=== PATIENT | female | born 1940 | race Caucasian/White ===

== ENCOUNTER 2019-01-20 06:49 | Emergency (ER) | payer MEDICARE, BC ==
[~2019-01-20] VITALS: Ht 144.8 cm; Wt 54.5 kg
[~2019-01-20 06:49] MED LIST: ALBU18HF2 IH; LOP25T PO
[2019-01-20 07:38] LABS: CLARITY,URINE CLOUDY (Clear); COLOR,URINE YELLOW (Yellow); GLUCOSE, URINE NEGATIVE (Neg); KETONES,URINE NEGATIVE (Neg); LEUKOCYTE ESTERASE ,URINE TRACE (Neg); NITRITES, URINE NEGATIVE (Neg); OCCULT BLOOD,URINE SMALL (Neg); PROTEIN,URINE NEGATIVE (Neg); UROBILINOGEN,URINE 0.2 E.U/dL (0.2-1.0)
[2019-01-20 07:38] LABS: BASOPHILS # (AUTO) 0.1 X10'3 (0-0.2); BASOPHILS % (AUTO) 0.8 % (0-1); EOSINOPHILS # (AUTO) 0.2 X10'3 (0-0.9); EOSINOPHILS % (AUTO) 2.3 % (0-6); HEMATOCRIT 44.9 % (35.0-45.0); HEMOGLOBIN 15.1 g/dl (12.0-16.0); LYMPHOCYTES # (AUTO) 1.9 X10'3 (1.1-4.8); LYMPHOCYTES % (AUTO) 18.6 % (21-51); MEAN CORPUSCULAR HEMOGLOBIN 30.6 PG (27.0-31.0); MEAN CORPUSCULAR HGB CONC 33.7 g/dL (33.0-36.5); MEAN CORPUSCULAR VOLUME 90.7 FL (78-98); MEAN PLATELET VOLUME 10.4 FL (7.4-10.4); MONOCYTES # (AUTO) 0.9 X10'3 (0-0.9); NEUTROPHILS % (AUTO) 69.3 % (42-75); PLATELET COUNT 222 X10'3 (140-440); RED BLOOD COUNT 4.95 X10'6 (4.20-5.60); RED CELL DISTRIBUTION WIDTH 14.2 % (11.5-14.5); WHITE BLOOD COUNT 10.1 X10'3 (4.5-11.0)
[2019-01-20] MEDS ORDERED: ondansetron/PF 4mg/2ml inj IV ONE (07:40)
[2019-01-20 07:42] LABS: UA COLLECTION TYPE CLN CATCH MIDSTREAM
[2019-01-20 07:45] LABS: BACTERIA,URINE 2+ /HPF (Neg); MUCUS STRANDS NONE SEEN /LPF (Neg); SQUAMOUS EPITHELIAL CELL,UR MANY /LPF (FEW)
[2019-01-20 07:48] LABS: INR 0.9 INR; PROTHROMBIN TIME 9.2 SECONDS (9.0-12.0)
[2019-01-20 07:50] LABS: ALANINE AMINOTRANSFERASE 35 U/L (12-78); ALBUMIN 3.5 G/DL (3.4-5.0); ALBUMIN/GLOBULIN RATIO 0.9 (1.1-1.5); ALKALINE PHOSPHATASE 114 IU/L (46-116); ANION GAP 10 (8-16); ASPARTATE AMINO TRANSFERASE 26 U/L (10-37); BLOOD UREA NITROGEN 9 MG/DL (7-18); BUN/CREATININE RATIO 13.2 (6.6-38.0); CALCIUM 9.2 MG/DL (8.5-10.1); CHLORIDE 105 MMOL/L (99-107); CREATININE 0.68 MG/DL (0.40-0.90); GLUCOSE 103 MG/DL (70-104); LIPASE 102 U/L (73-393); SODIUM 141 MMOL/L (135-145); TOTAL CARBON DIOXIDE 26.2 MMOL/L (24-32); TOTAL PROTEIN 7.6 G/DL (6.4-8.2); eGFR 84 ML/MIN
[2019-01-20 07:56] LABS: POTASSIUM 4.3 MMOL/L (3.5-5.1)
[2019-01-20] MEDS ORDERED: fentaNYL/PF 50MCG/1 ML 2ML syringe IV ONE (08:00)
[2019-01-20] MEDS ORDERED: ketorolac trometh. 30mg/ml inj. IV ONE (08:05)
[2019-01-20] MEDS ORDERED: iohexol 300mg/ml 100ml inj. ONE (08:06)
[2019-01-20 09:14] VITALS: BP 130/84
[2019-01-20] MEDS ORDERED: METR-159 PO (09:28)
[2019-01-20] MEDS ORDERED: CIPR-230 PO (09:28)
[2019-01-20] MEDS ORDERED: metroNIDAZOLE 500mg tablet PO ONE (09:30)
[2019-01-20] MEDS ORDERED: levoFLOXACIN 750MG TABLET PO ONE (09:30)
--- NOTE | 2019-01-20 10:10 | NUR ---
IV REMOVED WITH TIP INTACT. DC INSTRUCTIONS WITH PRESCRIPTION GIVEN. PATIENT VERBALIZED UNDERSTANDING. DEPARTED FROM ER IN GOOD CONDITION.
== END 2019-01-20 10:11 | disposition home or self-care (01) ==
LOC: ER 06:50
DX: K57.92 Diverticulitis of intestine, part unspecified, without perforation or abscess without bleeding (principal); I10 Essential (primary) hypertension; J45.909 Unspecified asthma, uncomplicated; G89.29 Other chronic pain; M54.9 Dorsalgia, unspecified; Z90.710 Acquired absence of both cervix and uterus; Z88.0 Allergy status to penicillin; Z88.2 Allergy status to sulfonamides; Z91.048 Other nonmedicinal substance allergy status
CPT/HCPCS: 36415; 74176; 80053; 81001; 83690; 85025; 85610; 96374; 99284; J1885; J2405; Q9967; J3490

== ENCOUNTER 2021-06-05 21:37 | Emergency (ER) | payer MEDICARE, BC ==
[~2021-06-05] VITALS: Ht 147.3 cm; Wt 57.3 kg
[2021-06-05 21:54] VITALS: BP 143/86
--- NOTE | 2021-06-06 01:06 | NUR ---
DR. ORTIZ AT BEDSIDE.
== END 2021-06-06 01:24 | disposition home or self-care (01) ==
LOC: ER 21:38
DX: M79.671 Pain in right foot (principal); M25.571 Pain in right ankle and joints of right foot; I10 Essential (primary) hypertension; J45.909 Unspecified asthma, uncomplicated; G89.29 Other chronic pain; N19 Unspecified kidney failure; Z85.9 Personal history of malignant neoplasm, unspecified; Z90.49 Acquired absence of other specified parts of digestive tract; Z91.048 Other nonmedicinal substance allergy status; Z88.0 Allergy status to penicillin; Z88.2 Allergy status to sulfonamides; Z79.899 Other long term (current) drug therapy
CPT/HCPCS: 73630; 99283

== ENCOUNTER 2022-01-25 08:03 | Emergency (ER) | payer MEDICARE, BC ==
[~2022-01-25] VITALS: Ht 147.3 cm; Wt 55.6 kg
[2022-01-25 08:17] VITALS: BP 127/88
[2022-01-25] MEDS ORDERED: HYDROcodone/acetaminophen 5mg/325mg tablet PO ONE (11:00)
[2022-01-25] MEDS ORDERED: ibuprofen 200mg tablet PO ONE (11:40)
== END 2022-01-25 11:54 | disposition home or self-care (01) ==
LOC: ER 08:04
DX: S70.02XA Contusion of left hip, initial encounter (principal); M25.552 Pain in left hip; I10 Essential (primary) hypertension; J45.909 Unspecified asthma, uncomplicated; G89.29 Other chronic pain; Z90.49 Acquired absence of other specified parts of digestive tract; Z85.9 Personal history of malignant neoplasm, unspecified; Z88.0 Allergy status to penicillin; Z88.2 Allergy status to sulfonamides; Z88.8 Allergy status to other drugs, medicaments and biological substances; Z79.899 Other long term (current) drug therapy; W19.XXXA Unspecified fall, initial encounter; Y93.89 Activity, other specified; Y92.89 Other specified places as the place of occurrence of the external cause; Y99.8 Other external cause status
CPT/HCPCS: 73502; 99284

== ENCOUNTER 2022-07-17 11:30 | Emergency (ER) | payer MEDICARE, BC ==
[~2022-07-17] VITALS: Ht 144.8 cm; Wt 53.2 kg
[2022-07-17 11:43] VITALS: BP 140/85
== END 2022-07-17 14:41 | disposition left against medical advice (07) ==
LOC: ER 11:30
DX: L04.9 Acute lymphadenitis, unspecified (principal); Z53.21 Procedure and treatment not carried out due to patient leaving prior to being seen by health care provider

== ENCOUNTER 2022-11-21 05:29 | Day surgery (SDC) | payer MEDICARE, BC ==
[2022-11-14 14:09] LABS: BASOPHILS % (AUTO) 0.4 % (0-1); EOSINOPHILS # (AUTO) 0.1 X10'3 (0-0.9); EOSINOPHILS % (AUTO) 1.2 % (0-6); LYMPHOCYTES # (AUTO) 1.3 X10'3 (1.1-4.8); LYMPHOCYTES % (AUTO) 19.5 % (21-51); MEAN CORPUSCULAR HEMOGLOBIN 29.6 PG (27.0-31.0); MEAN CORPUSCULAR HGB CONC 32.4 g/dL (33.0-36.5); MEAN CORPUSCULAR VOLUME 91.2 FL (78-98); MEAN PLATELET VOLUME 10.2 FL (7.4-10.4); MONOCYTES # (AUTO) 0.5 X10'3 (0-0.9); NEUTROPHILS # (AUTO) 4.6 X10'3 (1.8-7.7); NEUTROPHILS % (AUTO) 70.9 % (42-75); PRE OP HEMATOCRIT 43.6 % (35.0-45.0); PRE OP HEMOGLOBIN 14.1 g/dL (12.0-16.0); PRE OP PLATELET COUNT 240 X10'3 (140-440); RED BLOOD COUNT 4.78 X10'6 (4.20-5.60); RED CELL DISTRIBUTION WIDTH 14.4 % (11.5-14.5)
[2022-11-14 14:22] LABS: ALBUMIN 3.5 G/DL (3.4-5.0); ALKALINE PHOSPHATASE 113 IU/L (46-116); BLOOD UREA NITROGEN 9 MG/DL (7-18); BUN/CREATININE RATIO 16.1 (6.6-38.0); CALCIUM 8.9 MG/DL (8.5-10.1); CHLORIDE 107 MMOL/L (99-107); CREATININE 0.56 MG/DL (0.40-0.90); PRE OP ALT 19 U/L (30-65); PRE OP ANION GAP 4 (8-16); PRE OP AST 22 U/L (10-37); PRE OP BILIRUB, TOTAL 0.6 MG/DL (0.0-1.0); PRE OP GLUCOSE 106 MG/DL (70-104); PRE OP POTASSIUM 3.9 MMOL/L (3.4-5.1); PRE OP SODIUM 141 MMOL/L (135-145); TOTAL CARBON DIOXIDE 30.4 MMOL/L (24-32); TOTAL PROTEIN 7.1 G/DL (6.4-8.2); eGFR > 90 ML/MIN
[2022-11-21] VITALS (14 sets, daily range): BP systolic 139–166; BP diastolic 84–103
[~2022-11-21] VITALS: Ht 149.9 cm; Wt 51.0 kg
[~2022-11-21 05:29] MED LIST changes: +ASPI-1397 PO; +ATOR10TA70 PO; +HYDR-3964 PO; +OMEP20CA16 PO; +TRAM50TA2 PO; +ringers solution, lacted 1,000 ML IV SCH
[2022-11-21] MEDS ORDERED: celeCOXIB 100mg capsule PO ONE (05:30)
[2022-11-21] MEDS ORDERED: famotidine 20mg tablet PO ONE (05:30)
[2022-11-21] MEDS ORDERED: tranexamic acid inj. 1,000 MG in normal saline IV soln 100ML IV ONE (05:30)
[2022-11-21] MEDS ORDERED: metoclopramide 5 mg/ml inj IV ONE (05:30)
[2022-11-21] MEDS ORDERED: DOCUMENT DATE & TIME OF BETA-BLOCKER PO ONE (05:30)
[2022-11-21] MEDS ORDERED: vancomycin/NS 1 GM in NS 250 ML IV ONE (05:30)
[2022-11-21] MEDS ORDERED: triamcinolone acetonide 40mg/ml inj ONE (06:56)
[2022-11-21] MEDS ORDERED: BUPIVAcaine 0.25% w/Epi /PF 30ml vial ONE (06:56)
--- NOTE | 2022-11-21 06:59 | NUR ---
CALL MADE TO PHARMACY IN REGARDS TO CELEBREX ORDER AND PT'S SULFA ALLERGY. PT HAS BEEN PRESCRIBED THIS MEDICATION IN AUGUST WHEN SHE HAD HER LEFT KNEE REPLACEMENT. PT STATES SHE TOOK THIS MEDICATION WITH NO PROBLEMS OR REACTIONS. SPOKE TO PHARMACIST MIRANDA AND RELAYED INFORMATION AND SHE STATED IT WAS OK TO GIVE MEDICATION. WILL CONTINUE TO ASSESS
[2022-11-21] MEDS ORDERED: sevoflurane 250ml liquid IH ONE (07:15)
[2022-11-21] MEDS ORDERED: cloNIDine hcl/PF 100mcg/ml inj ONE (07:15)
[2022-11-21] MEDS ORDERED: propofol inj 20 ML IV ONE (07:43)
[2022-11-21] MEDS ORDERED: dexamethasone sod phosphate 4mg/ml inj. ONE (07:43)
[2022-11-21] MEDS ORDERED: ROPIVAcaine 0.5% (5mg/ml) 30ml vial ONE (07:43)
[2022-11-21] MEDS ORDERED: LIDOcaine 2% (20mg/ml) 5ml vial ONE (07:43)
--- NOTE | 2022-11-21 07:55 | NUR ---
Received from OR via [g PCS.BED], accompanied by Anesthesiologist [] and report given by Anesthesiolgist. Addendum: 11/21/22 at 0813 by Patricia Marcum RN, RN Amended: Links added.
[2022-11-21] MEDS ORDERED: ondansetron/PF 4mg/2ml inj IV PRN (08:00)
[2022-11-21] MEDS ORDERED: morphine 2 MG/ML inj. syringe IV PRN (08:00)
[2022-11-21] MEDS ORDERED: proCHLORperazine 10 MG/2 ml inj IV PRN (08:00)
[2022-11-21] MEDS ORDERED: ringers solution, lacted 1,000 ML IV SCH (08:00)
[2022-11-21] MEDS ORDERED: labetalol 20mg/4ml (5mg/ml) syringe IV PRN (08:00)
[2022-11-21] MEDS ORDERED: hydrALAZINE 20mg/ml inj. IV PRN (08:00)
[2022-11-21] MEDS ORDERED: meperidine/PF 25mg/ml syringe IV PRN ×3 (08:00)
[2022-11-21] MEDS ORDERED: acetaminophen 1,000mg/100ml IV 100 ML IV PRN (08:05)
[2022-11-21] MEDS ORDERED: ketorolac tromethamine 15mg/ml inj. IV ONE (08:05)
--- NOTE | 2022-11-21 09:45 | NUR ---
I HAVE REVIEWED D/C INSTRUCTIONS WITH PATIENT and they have verbalized understanding patient d/c home with all belongings and family gave transport home. Addendum: 11/21/22 at 0953 by Patricia Marcum RN, RN Amended: Links added.
== END 2022-11-21 09:45 | disposition home or self-care (01) ==
LOC: PAS 05:29
PROVIDERS: ATTEND Orthopaedic Surgery
DX: T84.82XA Fibrosis due to internal orthopedic prosthetic devices, implants and grafts, initial encounter (principal); M17.0 Bilateral primary osteoarthritis of knee; M85.80 Other specified disorders of bone density and structure, unspecified site; I10 Essential (primary) hypertension; G89.18 Other acute postprocedural pain; E78.5 Hyperlipidemia, unspecified; K21.9 Gastro-esophageal reflux disease without esophagitis; G43.909 Migraine, unspecified, not intractable, without status migrainosus; J45.20 Mild intermittent asthma, uncomplicated; Z90.710 Acquired absence of both cervix and uterus; Z96.653 Presence of artificial knee joint, bilateral; Z85.828 Personal history of other malignant neoplasm of skin; Z98.890 Other specified postprocedural states; Z88.0 Allergy status to penicillin; Z88.2 Allergy status to sulfonamides; Z91.048 Other nonmedicinal substance allergy status; Z79.82 Long term (current) use of aspirin; Z79.899 Other long term (current) drug therapy; Y83.8 Other surgical procedures as the cause of abnormal reaction of the patient, or of later complication, without mention of misadventure at the time of the procedure
CPT/HCPCS: 27570; 36415; 64447; 80053; 82948; 85025; 93005; J0131; J0735; J1100; J1885; J2704; J2765; J2795; J3370; J3490; J7120; Z7506; Z7512; A4618; J3301; S0020

== ENCOUNTER 2023-01-07 10:38 | Emergency (ER) | payer MEDICARE, BC ==
[~2023-01-07] VITALS: Ht 147.3 cm; Wt 50.9 kg
[~2023-01-07 10:38] MED LIST changes: -ringers solution, lacted 1,000 ML IV SCH
[2023-01-07] MEDS ORDERED: HYDROcodone/acetaminophen 10/325mg tab PO ONE (11:15)
--- NOTE | 2023-01-07 13:12 | NUR ---
Gait test completed w/ pt. Pt amb w/ walker and 2 staff standing by for approx 40 ft. States she does have pain, but was able to complete the ambulation. Pt placed back in bed and positioned for comfort on right side.
[2023-01-07] MEDS ORDERED: OXYC-149 PO (13:47)
[2023-01-07 15:44] VITALS: BP 171/115
== END 2023-01-07 14:00 | disposition home or self-care (01) ==
LOC: ER 10:38
DX: M54.16 Radiculopathy, lumbar region (principal); I10 Essential (primary) hypertension; Z88.0 Allergy status to penicillin; Z88.2 Allergy status to sulfonamides; Z91.09 Other allergy status, other than to drugs and biological substances; Z90.49 Acquired absence of other specified parts of digestive tract
CPT/HCPCS: 72100; 72170; 73552; 99284

== ENCOUNTER 2024-12-08 11:24 | Inpatient (IN) | payer MEDICARE, BC ==
[~2024-12-08] VITALS: Ht 167.6 cm; Wt 57.7 kg
[~2024-12-08 11:24] MED LIST changes: +LORA10TA7 PO; +PRED5TAB PO
[2024-12-08] MEDS ORDERED: iohexol 350MG/ML 100ml bottle IV ONE (12:09)
[2024-12-08 12:35] LABS: EOSINOPHILS # (AUTO) 0.1 X10'3 (0-0.9); LYMPHOCYTES # (AUTO) 0.7 X10'3 (1.1-4.8); MONOCYTES # (AUTO) 0.5 X10'3 (0-0.9)
[2024-12-08 12:37] LABS: BASOPHILS % (AUTO) 0.3 % (0-1); EOSINOPHILS % (AUTO) 1.5 % (0-6); HEMATOCRIT 34.8 % (35.0-45.0); LYMPHOCYTES % (AUTO) 16.2 % (21-51); MEAN CORPUSCULAR HEMOGLOBIN 25.8 PG (27.0-31.0); MEAN CORPUSCULAR HGB CONC 31.6 g/dL (33.0-36.5); MEAN CORPUSCULAR VOLUME 81.6 FL (78-98); MEAN PLATELET VOLUME 9.6 FL (7.4-10.4); MONOCYTES % (AUTO) 11.6 % (2-12); NEUTROPHILS # (AUTO) 3.1 X10'3 (1.8-7.7); NEUTROPHILS % (AUTO) 70.4 % (42-75); PLATELET COUNT 168 X10'3 (140-440); RED BLOOD COUNT 4.26 X10'6 (4.20-5.60); RED CELL DISTRIBUTION WIDTH 17.4 % (11.5-14.5); WHITE BLOOD COUNT 4.4 X10'3 (4.5-11.0)
[2024-12-08 12:43] LABS: APTT 24 SECONDS (22-32); PROTHROMBIN TIME 10.3 SECONDS (9.0-12.0)
[2024-12-08 12:46] LABS: ALANINE AMINOTRANSFERASE 16 U/L (12-78); ALBUMIN/GLOBULIN RATIO 0.9 (1.1-1.5); ALKALINE PHOSPHATASE 96 IU/L (46-116); ANION GAP 9 (8-16); ASPARTATE AMINO TRANSFERASE 18 U/L (10-37); BILIRUBIN,TOTAL 0.6 MG/DL (0.1-1.0); BLOOD UREA NITROGEN 11 MG/DL (7-18); CALCIUM 8.1 MG/DL (8.5-10.1); CHLORIDE 109 MMOL/L (99-107); GLUCOSE 98 MG/DL (70-104); POTASSIUM 3.6 MMOL/L (3.5-5.1); SODIUM 143 MMOL/L (135-145); TOTAL CARBON DIOXIDE 25.3 MMOL/L (24-32); TOTAL PROTEIN 6.2 G/DL (6.4-8.2); eCRCL 79 ML/MIN; eGFR > 90 ML/MIN
[2024-12-08 12:49] LABS: MAGNESIUM 1.9 MG/DL (1.5-2.4)
[2024-12-08 15:08] LABS: BILIRUBIN,URINE NEGATIVE (Neg); CLARITY,URINE CLEAR (Clear); COLOR,URINE YELLOW (Yellow); GLUCOSE, URINE NEGATIVE (Neg); KETONES,URINE NEGATIVE (Neg); LEUKOCYTE ESTERASE ,URINE NEGATIVE (Neg); NITRITES, URINE NEGATIVE (Neg); OCCULT BLOOD,URINE TRACE-INTACT (Neg); PROTEIN,URINE NEGATIVE (Neg); UROBILINOGEN,URINE 0.2 E.U/dL (0.2-1.0)
[2024-12-08 15:13] LABS: UA COLLECTION TYPE URINAL
[2024-12-08 15:21] LABS: WBC,URINE 0-4 /HPF (0-4)
[2024-12-08 15:22] LABS: BACTERIA,URINE NONE SEEN /HPF (Neg); SQUAMOUS EPITHELIAL CELL,UR FEW /LPF (FEW)
[2024-12-08] MEDS ORDERED: morphine 2 MG/ML inj. syringe IV PRN (17:30)
[2024-12-08] MEDS ORDERED: magnesium sulf-water 4G/100mL 100 ML IV PRN (17:30)
[2024-12-08] MEDS ORDERED: acetaminophen 325mg tablet PO PRN (17:30)
[2024-12-08] MEDS ORDERED: potassium Cl 20 mEq SR tablet PO PRN ×2 (17:30)
[2024-12-08] MEDS ORDERED: ondansetron/PF 4mg/2ml inj IV PRN (17:30)
[2024-12-08] MEDS ORDERED: magnesium hydroxide 30ml (MOM) UD suspension PO PRN (17:30)
[2024-12-08] MEDS ORDERED: potassium Cl 40MEQ/1/2NS 520ml 520 ML IV PRN (17:30)
[2024-12-08] MEDS ORDERED: mag hydrox/Alum hydrox/simeth 30ml oral suspension PO PRN (17:30)
[2024-12-08] MEDS ORDERED: magnesium sulf-water 2g/50mL 50 ML IV PRN (17:30)
[2024-12-08] MEDS ORDERED: magnesium Cl slow-release 64mg tablet PO PRN (17:30)
[2024-12-08 18:25] LABS: HEMOGLOBIN A1C 5.9 % (4.5-6.2)
[2024-12-08] MEDS ORDERED: PERFLUTREN PROTEIN-A MICROSPHR (Optison) 0.22 MG/ML 3ML VIAL IV ONE (18:25)
[2024-12-08] MEDS ORDERED: PRAZ2CAP2 PO (18:29)
[2024-12-08] MEDS ORDERED: PARO20TA6 PO (18:30)
[2024-12-08] MEDS ORDERED: BACL5TAB PO (18:33)
[2024-12-08] MEDS: K and/or MAG REPLACEMENT MC SCH (19:19)
[2024-12-08 19:30] VITALS: BP 124/86; PULSE 94; RESP 16; TEMP 97.6; O2SAT 95
[2024-12-08] MEDS: clindamycin 600mg/D5W 50ml 50 ML IV SCH (19:32)
[2024-12-08] MEDS: docusate sod 100mg capsule PO SCH (19:32)
[2024-12-08 20:00] VITALS: BP_SYST 139; BP_SYST 145; BP_SYST 146; BP_DIAS 70; BP_DIAS 81; BP_DIAS 84; PULSE 85; PULSE 90
[2024-12-08 22:00] VITALS: BP 133/66; PULSE 86; RESP 19; TEMP 97.9; O2SAT 95
[2024-12-09 02:00] VITALS: BP 146/84; PULSE 90; RESP 20; TEMP 98.5; O2SAT 97
[2024-12-09 06:40] LABS: BASOPHILS % (AUTO) 0.4 % (0-1); EOSINOPHILS # (AUTO) 0.1 X10'3 (0-0.9); HEMATOCRIT 34.6 % (35.0-45.0); LYMPHOCYTES # (AUTO) 1.2 X10'3 (1.1-4.8); MEAN PLATELET VOLUME 9.6 FL (7.4-10.4); MONOCYTES # (AUTO) 0.4 X10'3 (0-0.9); PLATELET COUNT 182 X10'3 (140-440)
[2024-12-09 06:43] LABS: EOSINOPHILS % (AUTO) 3.5 % (0-6); HEMOGLOBIN 11.3 g/dl (12.0-16.0); MEAN CORPUSCULAR HEMOGLOBIN 26.4 PG (27.0-31.0); MEAN CORPUSCULAR HGB CONC 32.7 g/dL (33.0-36.5); MEAN CORPUSCULAR VOLUME 80.9 FL (78-98); MONOCYTES % (AUTO) 11.6 % (2-12); NEUTROPHILS % (AUTO) 52.5 % (42-75); RED BLOOD COUNT 4.27 X10'6 (4.20-5.60); RED CELL DISTRIBUTION WIDTH 16.8 % (11.5-14.5); WHITE BLOOD COUNT 3.8 X10'3 (4.5-11.0)
[2024-12-09 07:10] LABS: ALANINE AMINOTRANSFERASE 16 U/L (12-78); ALBUMIN 2.9 G/DL (3.4-5.0); ALBUMIN/GLOBULIN RATIO 0.9 (1.1-1.5); ALKALINE PHOSPHATASE 98 IU/L (46-116); ANION GAP 9 (8-16); ASPARTATE AMINO TRANSFERASE 15 U/L (10-37); BILIRUBIN,TOTAL 0.6 MG/DL (0.1-1.0); BLOOD UREA NITROGEN 11 MG/DL (7-18); BUN/CREATININE RATIO 19.3 (10.0-20.0); CALCIUM 8.4 MG/DL (8.5-10.1); CHLORIDE 108 MMOL/L (99-107); CHOL/HDL RATIO 2.5 (0.00-4.99); CHOLESTEROL 118 MG/DL (0-200); CREATININE 0.57 MG/DL (0.40-0.90); GLUCOSE 92 MG/DL (70-104); HDL CHOLESTEROL 47 MG/DL (35-60); LDL CHOLESTEROL 58 MG/DL (50-100); MAGNESIUM 1.9 MG/DL (1.5-2.4); POTASSIUM 3.8 MMOL/L (3.5-5.1); SODIUM 143 MMOL/L (135-145); TOTAL CARBON DIOXIDE 26.5 MMOL/L (24-32); TOTAL PROTEIN 6.3 G/DL (6.4-8.2); TRIGLYCERIDES 48 MG/DL (20-135); eCRCL 69 ML/MIN; eGFR > 90 ML/MIN
[2024-12-09 08:00] VITALS: BP_SYST 107; BP_SYST 113; BP_SYST 123; BP_SYST 98; BP_DIAS 57; BP_DIAS 64; BP_DIAS 69; BP_DIAS 99; PULSE 101; PULSE 80; PULSE 94; RESP 18; TEMP 96.8; TEMP 97.8; O2SAT 94
[2024-12-09] MEDS: HYDROcodone/acetaminophen 5mg/325mg tablet PO PRN (08:27)
[2024-12-09 08:53] LABS: ETHANOL < 10 MG/DL (<10)
[2024-12-09 14:19] LABS: BILIRUBIN,URINE NEGATIVE (Neg); CLARITY,URINE CLEAR (Clear); COLOR,URINE YELLOW (Yellow); GLUCOSE, URINE NEGATIVE (Neg); KETONES,URINE NEGATIVE (Neg); LEUKOCYTE ESTERASE ,URINE SMALL (Neg); NITRITES, URINE NEGATIVE (Neg); OCCULT BLOOD,URINE NEGATIVE (Neg); PROTEIN,URINE NEGATIVE (Neg); UROBILINOGEN,URINE 0.2 E.U/dL (0.2-1.0)
[2024-12-09 14:26] LABS: UA COLLECTION TYPE NON-SPECIFIED
[2024-12-09 14:28] LABS: BACTERIA,URINE FEW /HPF (Neg); RBC,URINE 0-2 /HPF (0-2); SQUAMOUS EPITHELIAL CELL,UR NONE SEEN /LPF (FEW); WBC,URINE 0-4 /HPF (0-4)
[2024-12-09 15:26] LABS: URINE AMPHETAMINE SCREEN NEGATIVE (Neg); URINE BARBITUATE SCREEN NEGATIVE (Neg); URINE BENZODIAZEPINES SCREEN NEGATIVE (Neg); URINE CANNABINOID SCREEN NEGATIVE (Neg); URINE COCAINE SCREEN NEGATIVE (Neg); URINE METHADONE SCREEN NEGATIVE (Neg); URINE OPIATE SCREEN POSITIVE (Neg); URINE PHENCYCLIDINE SCREEN NEGATIVE (Neg)
[2024-12-09 16:00] VITALS: BP 135/66; PULSE 84; RESP 24; TEMP 97.8; O2SAT 98
[2024-12-09 18:00] VITALS: BP 133/84; PULSE 79; RESP 21; TEMP 98.1; O2SAT 95
[2024-12-09 20:00] VITALS: BP_SYST 131; BP_SYST 135; BP_SYST 136; BP_DIAS 71; BP_DIAS 75; BP_DIAS 81; PULSE 78; PULSE 95; PULSE 98
[2024-12-09] MEDS: prazosin 1mg capsule PO SCH (20:00)
[2024-12-09] MEDS: metoprolol tartrate 25mg tablet PO SCH (20:00)
[2024-12-09 22:00] VITALS: BP 96/69; PULSE 75; RESP 20; TEMP 97.6; O2SAT 93
[2024-12-10] VITALS (8 sets, daily range): BP systolic 97–145; BP diastolic 52–82; PULSE 69–92; RESP 14–21; TEMP 97.1–97.8; O2SAT 94–97
[2024-12-10 05:27] LABS: BASOPHILS % (AUTO) 0.5 % (0-1); EOSINOPHILS # (AUTO) 0.1 X10'3 (0-0.9); EOSINOPHILS % (AUTO) 4.1 % (0-6); HEMATOCRIT 32.7 % (35.0-45.0); HEMOGLOBIN 10.6 g/dl (12.0-16.0); LYMPHOCYTES # (AUTO) 1.3 X10'3 (1.1-4.8); LYMPHOCYTES % (AUTO) 38.8 % (21-51); MEAN CORPUSCULAR HEMOGLOBIN 26.3 PG (27.0-31.0); MEAN CORPUSCULAR HGB CONC 32.3 g/dL (33.0-36.5); MEAN CORPUSCULAR VOLUME 81.4 FL (78-98); MEAN PLATELET VOLUME 8.9 FL (7.4-10.4); MONOCYTES # (AUTO) 0.4 X10'3 (0-0.9); MONOCYTES % (AUTO) 11.3 % (2-12); NEUTROPHILS # (AUTO) 1.5 X10'3 (1.8-7.7); NEUTROPHILS % (AUTO) 45.3 % (42-75); PLATELET COUNT 175 X10'3 (140-440); RED BLOOD COUNT 4.02 X10'6 (4.20-5.60); WHITE BLOOD COUNT 3.3 X10'3 (4.5-11.0)
[2024-12-10 05:50] LABS: ALANINE AMINOTRANSFERASE 14 U/L (12-78); ALBUMIN 2.7 G/DL (3.4-5.0); ALBUMIN/GLOBULIN RATIO 0.9 (1.1-1.5); ALKALINE PHOSPHATASE 86 IU/L (46-116); ANION GAP 5 (8-16); ASPARTATE AMINO TRANSFERASE 11 U/L (10-37); BILIRUBIN,TOTAL 0.5 MG/DL (0.1-1.0); BLOOD UREA NITROGEN 14 MG/DL (7-18); BUN/CREATININE RATIO 23.7 (10.0-20.0); CALCIUM 8.1 MG/DL (8.5-10.1); CHLORIDE 106 MMOL/L (99-107); CREATININE 0.59 MG/DL (0.40-0.90); GLUCOSE 96 MG/DL (70-104); MAGNESIUM 1.9 MG/DL (1.5-2.4); SODIUM 141 MMOL/L (135-145); TOTAL CARBON DIOXIDE 29.8 MMOL/L (24-32); TOTAL PROTEIN 5.8 G/DL (6.4-8.2); eCRCL 67 ML/MIN; eGFR > 90 ML/MIN
[2024-12-10] MEDS: PARoxetine 20mg tablet PO SCH (08:24)
[2024-12-10] MEDS: atorvastatin 10mg tablet PO SCH (08:24)
[2024-12-10] MEDS ORDERED: LACT1CAP75 PO (17:02)
[2024-12-11 02:00] VITALS: BP 134/53; PULSE 68; RESP 16; TEMP 97.8; O2SAT 94
[2024-12-11 05:58] LABS: BASOPHILS % (AUTO) 0.2 % (0-1); EOSINOPHILS # (AUTO) 0.1 X10'3 (0-0.9); EOSINOPHILS % (AUTO) 3.6 % (0-6); HEMATOCRIT 32.1 % (35.0-45.0); HEMOGLOBIN 10.4 g/dl (12.0-16.0); LYMPHOCYTES # (AUTO) 1.3 X10'3 (1.1-4.8); LYMPHOCYTES % (AUTO) 35.1 % (21-51); MEAN CORPUSCULAR HEMOGLOBIN 26.3 PG (27.0-31.0); MEAN CORPUSCULAR HGB CONC 32.4 g/dL (33.0-36.5); MEAN PLATELET VOLUME 9.5 FL (7.4-10.4); MONOCYTES # (AUTO) 0.3 X10'3 (0-0.9); MONOCYTES % (AUTO) 8.5 % (2-12); NEUTROPHILS % (AUTO) 52.6 % (42-75); PLATELET COUNT 169 X10'3 (140-440); RED BLOOD COUNT 3.96 X10'6 (4.20-5.60); RED CELL DISTRIBUTION WIDTH 16.8 % (11.5-14.5); WHITE BLOOD COUNT 3.8 X10'3 (4.5-11.0)
[2024-12-11 06:00] VITALS: BP 126/52; PULSE 60; RESP 14; TEMP 97.5; O2SAT 97
[2024-12-11 06:49] LABS: ALANINE AMINOTRANSFERASE 14 U/L (12-78); ALBUMIN 2.7 G/DL (3.4-5.0); ALBUMIN/GLOBULIN RATIO 0.9 (1.1-1.5); ALKALINE PHOSPHATASE 84 IU/L (46-116); ANION GAP 7 (8-16); ASPARTATE AMINO TRANSFERASE 15 U/L (10-37); BILIRUBIN,TOTAL 0.4 MG/DL (0.1-1.0); BLOOD UREA NITROGEN 18 MG/DL (7-18); BUN/CREATININE RATIO 27.7 (10.0-20.0); C-REACTIVE PROTEIN 0.64 MG/DL (0.0-0.5); CALCIUM 8.3 MG/DL (8.5-10.1); CHLORIDE 108 MMOL/L (99-107); CREATININE 0.65 MG/DL (0.40-0.90); GLUCOSE 100 MG/DL (70-104); POTASSIUM 4.2 MMOL/L (3.5-5.1); SODIUM 143 MMOL/L (135-145); TOTAL CARBON DIOXIDE 28.2 MMOL/L (24-32); TOTAL PROTEIN 5.7 G/DL (6.4-8.2); eCRCL 61 ML/MIN; eGFR 87 ML/MIN
[2024-12-11 08:00] VITALS: BP_SYST 125; BP_SYST 129; BP_SYST 137; BP_DIAS 64; BP_DIAS 74; BP_DIAS 79; PULSE 70; PULSE 72
[2024-12-11] MEDS: CefTRIAXone/D5W-Rocephin 1gm 50 ML IV SCH (09:58)
[2024-12-11 11:00] VITALS: BP 119/65; PULSE 78; RESP 19; TEMP 98.3; O2SAT 96
== END 2024-12-11 14:36 | DRG 312 ==
LOC: ER 11:25 → ED HOLD 14:53 → PCU 3S 19:15
PROVIDERS: ADMIT Family Medicine; ATTEND Family Medicine
PROC: B4201ZZ Computerized Tomography (CT Scan) of Abdominal Aorta using Low Osmolar Contrast (ICD-10-PCS; 2024-12-08)
PROC: B4241ZZ Computerized Tomography (CT Scan) of Superior Mesenteric Artery using Low Osmolar Contrast (ICD-10-PCS; 2024-12-08)
PROC: B4281ZZ Computerized Tomography (CT Scan) of Bilateral Renal Arteries using Low Osmolar Contrast (ICD-10-PCS; 2024-12-08)
PROC: B42C1ZZ Computerized Tomography (CT Scan) of Pelvic Arteries using Low Osmolar Contrast (ICD-10-PCS; 2024-12-08)
PROC: B4211ZZ Computerized Tomography (CT Scan) of Celiac Artery using Low Osmolar Contrast (ICD-10-PCS; 2024-12-08)
PROC: 4A00X4Z Measurement of Central Nervous Electrical Activity, External Approach (ICD-10-PCS; principal; 2024-12-09)
DX: R55 Syncope and collapse (principal); J45.909 Unspecified asthma, uncomplicated; I10 Essential (primary) hypertension; E78.5 Hyperlipidemia, unspecified; Z96.652 Presence of left artificial knee joint; F32.A Depression, unspecified; M54.9 Dorsalgia, unspecified; F41.9 Anxiety disorder, unspecified; R19.7 Diarrhea, unspecified; Z79.82 Long term (current) use of aspirin; Z79.899 Other long term (current) drug therapy; Z88.0 Allergy status to penicillin; Z88.2 Allergy status to sulfonamides; Z91.09 Other allergy status, other than to drugs and biological substances; Z90.49 Acquired absence of other specified parts of digestive tract
CPT/HCPCS: 36415; 70450; 70551; 71275; 74177; 80053; 80061; 80305; 80320; 81001; 83036; 83605; 83735; 84145; 84484; 85025; 85610; 85651; 85730; 86140; 87040; 87081; 87088; 87502; 87503; 93005; 93306; 95816; 97161; 97530; 99285; A6258; G0378; J0696; J3490; J7040; Q9967

== ENCOUNTER 2025-04-22 14:12 | Emergency (ER) | payer MEDICARE, BC ==
[~2025-04-22] VITALS: Ht 152.4 cm; Wt 53.3 kg
[~2025-04-22 14:12] MED LIST changes: -ALBU18HF2 IH; -ASPI-1397 PO; +BACL5TAB PO; -HYDR-3964 PO; +LACT1CAP75 PO; -LORA10TA7 PO; +PARO20TA6 PO; +PRAZ2CAP2 PO; -PRED5TAB PO; -TRAM50TA2 PO
[2025-04-22 14:18] VITALS: BP 154/88; PULSE 82; TEMP 98.8; O2SAT 98
[2025-04-22 15:53] VITALS: RESP 18
[2025-04-22] MEDS: ketorolac trometh 15mg/ml vial 15 MG/ML ML IM ONE (15:53)
--- NOTE | 2025-04-22 16:04 | Physician Documentation ---
History of Present Illness ~ Chief Complaint: Knee Pain Stated Complaint: L KNEE PAIN Time Seen by MD: 14:24 Primary Medical Doctor: [facility] 84-year-old female brought in by daughter for acute exacerbation of left knee pain. Patient has noticed some swelling over the past few days. No aggravating factors or injuries although she has been walking and doing more due to her h usband being in the hospital. The pain started when she increased her activity. Patient denies any falls. Patient does have history of having a knee arthroplasty. Patient has an appoint with Dr. Spears her orthopedic surgeon to evaluate further. Patient has had this increased pain and due to Dr. Carver's office not being able to see her until May told her to go to the emergency department as the pain was too much. Tetanus witin 5 years: Yes Medication Reconciliation Allergies: Coded Allergies: Penicillins (Verified Allergy, Severe, SOB, HIVES, 04/22/25) adhesive tape (Verified Allergy, Intermediate, blisters, 09/07/24) Sulfa (Sulfonamide Antibiotics) (Verified Allergy, Unknown, 09/07/24) Scheduled Atorvastatin Calcium (Atorvastatin Calcium), 1 TAB PO DAILY, (Reported) Lactobacillus Combo No.10 (Probiotic), 1 TAB PO DAILY, (Reported) Metoprolol Tartrate* (Lopressor*), 25 MG PO BID, (Reported) Omeprazole (Omeprazole), 1 CAP PO DAILY, (Reported) Paroxetine HCl (Paroxetine HCl), 1 TAB PO DAILY, (Reported) Prazosin Hcl (Prazosin Hcl), 1 CAP PO HS, (Reported) Miscellaneous Medications Baclofen (Baclofen), 1 TAB PO, (Reported) Past Medical History Past Medical History: Hypertension, Asthma, Renal Disease, Chronic Back Pain, *CANCER* Past Surgical History: cancer surgery, cholecystectomy, orthopedic surgeries Patient History: Patient reports no known family medical history. Alcohol Use: None Drug Use: none Lives with: Spouse Lives In: Home Review of Systems All Other Systems at this time: Reviewed and Negative Musculoskeletal: Reports: see HPI Physical Exam Vital Signs: RN Vital Signs have been reviewed: Yes, Temperature: 98.8, Source: Temporal, Heart Rate: 82, Respiratory Rate: 18, BP: 154/88, Pulse Oximetry: 98, Weight: 53.300 General Appearance: alert, WD/WN, no apparent distress Respiratory: lungs clear Chest: no accessory muscle use Cardiovascular: regular rate, rhythm Knees Small amount of medial left knee swelling no obvious effusion good patellar tracking, crepitus noted tender to palpate without erythema Progress Results/Orders Results/Orders Completed Orders - PATRICIA MORRISON NP Ketorolac Trometh 15mg/Ml Vial (Toradol (04/22/25 15:30) Medications Received in ER Medications (Trade) Dose Ordered Sig/Abdelrahman Route PRN Reason Start Time Stop Time Status Last Admin Dose Admin (Toradol injection) 30 mg ONCE ONCE IM 04/22/25 15:30 04/22/25 15:32 DC 04/22/25 15:53 30 MG Vital Signs 04/22/25 04/22/25 14:18 15:53 Temp 98.8 Pulse 82 Resp 16 18 B/P (MAP) 154/88 Pulse Ox 98 Medical Decision Making Findings With patient's only aggravating factor being increased activity including walking due to has been being in the hospital. No recent falls history of knee arthroplasty patient has follow-up with primary care as well as Orthopedics Dr. Spears her appointment although is approaching is still in May. Patient is needing some help with pain control. Discussed [id number] and nonpha rmacological methods to help with pain. Departure Time of Disposition: 16:19 Disposition: 01 HOME / SELF CARE / HOMELESS Impression: Primary Impression: Knee pain Additional Impression: Arthritis Condition: Stable Discharge Instructions: Arthritis Additional Instructions: Maintain appointment with Dr. Spears take medications as prescribed and follow-up as needed Referrals: NO PRIMARY CARE PROVIDER (PCP) Prescriptions Celecoxib (Celebrex) 200 Mg Capsule 1 CAP PO DAILY for pain for 30 Days, #30 CAP 0 Refills Prov: PATRICIA MORRISON NP 04/22/25 Diclofenac Sodium (Diclofenac Sodium) 1 % Gel..gram. 1 APPLIC TOP Q6H for 21 Days, #100 GM 0 Refills Prov: PATRICIA MORRISON NP 04/22/25 Education Educated: Patient, Family Educated regarding: diagnosis, treatment, need for follow up Signature Scribe Signature: No scribe Attestation: The note accurately reflects work and decisions made by me.Patricia Morrison - [employer] OVER[employer] 04/22/25 16:20 PATRICIA MORRISON NP Apr 22, 2025 16:04
[2025-04-22] MEDS ORDERED: CELE-80 PO (16:20)
[2025-04-22] MEDS ORDERED: DICL100G59 TOP (16:20)
== END 2025-04-22 16:28 | disposition home or self-care (01) ==
LOC: ER 14:13
DX: M17.12 Unilateral primary osteoarthritis, left knee (principal); I10 Essential (primary) hypertension; J45.909 Unspecified asthma, uncomplicated; Z88.0 Allergy status to penicillin; Z88.2 Allergy status to sulfonamides; Z90.49 Acquired absence of other specified parts of digestive tract
CPT/HCPCS: 96372; 99283; J1885

== ENCOUNTER 2025-05-04 17:19 | Emergency (ER) | payer MEDICARE, BC ==
[~2025-05-04] VITALS: Ht 147.3 cm; Wt 50.0 kg
[~2025-05-04 17:19] MED LIST changes: +CELE-80 PO; +DICL100G59 TOP
[2025-05-04 17:32] VITALS: BP 135/90
--- NOTE | 2025-05-04 18:10 | ELECTROCARDIOGRAPH REPORT ---
[facility] Test Date: 2025-05-04 Test Time: 17:25:13 Pat Name: YAA MALIK Department: EMERGENCY ROOM Room: Gender: F Fisher Sponge Hooking: FAHAD : 1940 Requested By: DEPARTMENT EMERGENCY Order Number: [id number] Reading MD: Dr. Mitch Quintanilla Measurements Intervals [address] Rate: 73 P: 20 IA: 132 QRS: -4 QRSD: 90 T: 36 QT: 414 QTc: 457 Interpretive Statements Sinus rhythm Electronically Signed On 05-04-2025 18:19:[address] Mitch Quintanilla Please click the below link to view image of tracing.
--- NOTE | 2025-05-04 19:18 | Physician Documentation ---
History of Present Illness ~ Chief Complaint: Mechanical Fall Stated Complaint: CHEST PAIN Time Seen by MD: 19:13 OK to notify your PCP?: Yes Primary Medical Doctor: EDWIN Source: patient, RN/, RN notes reviewed, old records Mode of Arrival: POV Exam Limitations: no limitations HPI This patient fell over a week ago landing on her left chest wall. She states it has been quite painful. Getting progressively worse each day. She has a slight cold now and it is getting very difficult to breathe. She denies any fevers or chills. Patient denies any phlegm. She denies any click or pops. She has not taken any pain medications despite having intractable pain but she is here for evaluation. She is otherwise in good health. She denies any head trauma no loss of consciousness, no blood thinners. She is otherwise in good health. Her pain is sharp and stabbing worse with deep inspiration Tetanus within 5 Years?: Yes Medication Reconciliation Allergies: Coded Allergies: Penicillins (Verified Allergy, Severe, SOB, HIVES, 04/22/25) adhesive tape (Verified Allergy, Intermediate, blisters, 09/07/24) Sulfa (Sulfonamide Antibiotics) (Verified Allergy, Unknown, 09/07/24) Scheduled Atorvastatin Calcium (Atorvastatin Calcium), 1 TAB PO DAILY, (Reported) Celecoxib (Celebrex), 1 CAP PO DAILY Diclofenac Sodium (Diclofenac Sodium), 1 APPLIC TOP Q6H Lactobacillus Combo No.10 (Probiotic), 1 TAB PO DAILY, (Reported) Metoprolol Tartrate* (Lopressor*), 25 MG PO BID, (Reported) Omeprazole (Omeprazole), 1 CAP PO DAILY, (Reported) Paroxetine HCl (Paroxetine HCl), 1 TAB PO DAILY, (Reported) Prazosin Hcl (Prazosin Hcl), 1 CAP PO HS, (Reported) Miscellaneous Medications Baclofen (Baclofen), 1 TAB PO, (Reported) Past Medical History Past Medical History: Hypertension, Asthma, Renal Disease, Chronic Back Pain, *CANCER* Past Surgical History: cancer surgery, cholecystectomy, orthopedic surgeries Patient History: Patient reports no known family medical history. Alcohol Use: None Drug Use: none Lives with: Spouse Lives In: Home Review of Systems All Other Systems at this time: Reviewed and Negative ROS As stated above in the HPI, otherwise all systems are reviewed and negative. Physical Exam Vital Signs: RN Vital Signs have been reviewed: Yes, Temperature: 99.1, Heart Rate: 81, Respiratory Rate: 18, BP: 135/90, Pulse Oximetry: 98, Weight: 50.000 Oxygen Flow Rate: 0 Physical Exam General: The patient is well developed, well nourished, nontoxic appearing and is in mild acute distress. Skin: [place], warm and dry with no rashes. HEENT: Head was normocephalic and atraumatic. Eyes - pupils equal, round, reactive to light and accommodation. Extraocular movements were intact. Conjunctivae were nonicteric. The mouth and oropharynx were clear with moist mucous membranes. Neck: Supple and nontender. There was no jugular venous distention, lymphadenopathy, Chest: Clear to auscultation bilaterally without wheezes, rales or rhonchi. No accessory muscle use. Pain is noted to palpation in the left anterior and left mid axillary line as well. No ecchymosis noted no clicks or pops on auscultation. However severe pain with palpation. Heart: Rate regular and rhythmic. S1, S2. No murmurs. Palpation of the chest wall was normal. Abdomen: Soft, nontender and nondistended. Positive bowel sounds. No guarding or rebound. Extremities: No cyanosis, clubbing or edema. The patient moves all extremities. Pulses were equal and symmetric. Neurologic: Motor sensory grossly intact Psychologic: The patient was oriented to person, place and time. The patient demonstrated appropriate judgement and insight. Progress Results/Orders Reviewed/noted all lab results: Yes Results/Orders Orders - MARY JANE QUINTANILLA MD With Pa Chest (05/04/25 19:37) Completed Orders - MARY JANE QUINTANILLA MD With Pa Chest (05/04/25 19:37) Naproxen Tablet (Naprosyn Tablet) (05/04/25 19:25) Medications Received in ER Medications (Trade) Dose Ordered Sig/Abdelrahman Route PRN Reason Start Time Stop Time Status Last Admin Dose Admin (Naprosyn tablet) 500 mg ONCE ONCE PO 05/04/25 19:25 05/04/25 19:26 DC 05/04/25 20:35 500 MG Vital Signs 05/04/25 05/04/25 05/04/25 17:32 19:00 21:26 Temp 99.1 98.9 Pulse 81 68 Resp 18 18 10 B/P (MAP) 135/90 Pulse Ox 98 95 O2 Flow Rate 0 Re-Evaluation Re-Evaluation : Re-Evaluation: Improved Progress Patient was given naproxen had some improvement but not dramatic improvement. She does have pain with inspiration and was guarding during the exam for physical exam. There was no clicks or pops. X-ray was negative. Possibility of occult fracture is possible and the patient may need re-evaluation. More importantly pulmonary toiletry was discussed so that she does not develop pneumonia. Pain medications with naproxen and breakthrough pain Tylenol low- dose was discussed. Patient was then discharged home to follow up with her primary care physician as needed. There was no pneumothorax no hemothorax, no obvious fractures noted. EKG/XRAY/CT/US/VASC/MRI EKG : Intepreting Monitor?: Yes Additional Comment Ordering Physician: EMERGENCY, DEPARTMENT Exam Name: ELECTROCARDIOGRAM Technologist: [facility] Test Date: 2025-05-04 Test Time: 17:25:13 Pat Name: YAA MALIK Department: EMERGENCY ROOM Room: Gender: F Mine Inspector: FAHAD : 1940 Requested By: DEPARTMENT EMERGENCY Order Number: [id number] Reading MD: Dr. Mary Jane Quintanilla Measurements Intervals [place] Rate: 73 P: 20 WI: 132 QRS: -4 QRSD: 90 T: 36 QT: 414 QTc: 457 Interpretive Statements Sinus rhythm Electronically Signed On 05-04-2025 18:19:[address] Mary Jane Quintanilla Please click the below link to view image of tracing. Chest X-Ray : Interpreted By: both Additional Comments Ordering Physician: MARY JANE QUINTANILLA MD Exam: UNI RIBS WITH PA CHEST CHEST RADIOGRAPH Indication: left lower anterior axillary pain Technique: Single frontal view of the chest with 3 views of the ribs available for evaluation Comparison: None FINDINGS: Lines and Tubes: None Lungs: No focal consolidation. Bibasilar linear densities Pleura: No effusion. No pneumothorax. Cardiomediastinal contours: Unremarkable Bones: No acute osseous abnormality. Vertebroplasty of lower thoracic spine and upper lumbar spine. IMPRESSION: Bibasilar linear atelectasis. Otherwise, No acute cardiopulmonary disease. No acute displaced rib fractures. Electronically Signed by:ADELINA VILLEGAS DO Medical Decision Making Additional info obtained from: old records Differential Dx:Considerations: Include: Fracture(s), Pulmonary contusion, Abrasion(s), Contusion(s), Hematoma(s), Other Departure Time of Disposition: 21:10 Disposition: 01 HOME / SELF CARE / HOMELESS Impression: Primary Impression: Rib contusion Qualified Codes: S29.8XXA - Other specified injuries of thorax, initial encounter Additional Impressions: Rib pain Fall Qualified Codes: W19.XXXA - Unspecified fall, initial encounter Condition: Stable Discharge Instructions: Fall Prevention in the Home, Adult, [id number] Additional Instructions: Patient is directed to take over the counter Aleve with food twice a day. For any breakthrough pain you are instructed to take 325 Tylenol 3-4 times a day. Referrals: NO PRIMARY CARE PROVIDER (PCP) Education Educated: Patient, Family Educated regarding: diagnosis, treatment, prognosis, need for follow up, other Signature Scribe Signature: Scribed for Mary Jane Quintanilla MD by Yesika Claudio . 05/04/25 21:04 Attestation: The note accurately reflects work and decisions made by me.Mary Jane Quintanilla MD 05/04/25 19:17 MARY JANE QUINTANILLA MD May 04, 2025 19:18 YESIKA ABDALLA May 04, 2025 21:04
--- NOTE | 2025-05-04 19:59 | RADIOLOGY REPORT ---
CHEST RADIOGRAPH Indication: left lower anterior axillary pain Technique: Single frontal view of the chest with 3 views of the ribs available for evaluation Comparison: None FINDINGS: Lines and Tubes: None Lungs: No focal consolidation. Bibasilar linear densities Pleura: No effusion. No pneumothorax. Cardiomediastinal contours: Unremarkable Bones: No acute osseous abnormality. Vertebroplasty of lower thoracic spine and upper lumbar spine. IMPRESSION: Bibasilar linear atelectasis. Otherwise, No acute cardiopulmonary disease. No acute displaced rib fractures.
[2025-05-04 21:26] VITALS: PULSE 68; RESP 10; TEMP 98.9; O2SAT 95
== END 2025-05-04 21:28 | disposition home or self-care (01) ==
LOC: ER 17:20
DX: S20.20XA Contusion of thorax, unspecified, initial encounter (principal); I10 Essential (primary) hypertension; J45.909 Unspecified asthma, uncomplicated; Z88.0 Allergy status to penicillin; Z88.2 Allergy status to sulfonamides; Z90.49 Acquired absence of other specified parts of digestive tract; X58.XXXA Exposure to other specified factors, initial encounter; Y93.89 Activity, other specified; Y92.89 Other specified places as the place of occurrence of the external cause; Y99.8 Other external cause status
CPT/HCPCS: 71101; 93005; 99283